=== PATIENT | female | born 1965 | race Two or more races ===

== ENCOUNTER 2017-02-19 15:12 | Emergency (ER) | payer MEDICAID ==
[~2017-02-19] VITALS: Ht 157.5 cm; Wt 59.0 kg
[2017-02-19 15:52] VITALS: BP 141/83
== END 2017-02-19 16:51 | disposition home or self-care (01) ==
LOC: ER 15:12
DX: L25.9 Unspecified contact dermatitis, unspecified cause (principal); Z88.0 Allergy status to penicillin; Z88.5 Allergy status to narcotic agent; Z88.6 Allergy status to analgesic agent